=== PATIENT | female | born 2000 | race Caucasian/White ===

== ENCOUNTER 2024-09-11 16:45 | Emergency (ER) | payer OTHER ==
[~2024-09-11] VITALS: Ht 165.1 cm; Wt 59.0 kg
[2024-09-11 17:20] VITALS: BP 151/89; TEMP 98.6; O2SAT 98
[2024-09-11] MEDS: hydrOXYzine 10 MG TABLET PO ONE (18:08)
== END 2024-09-11 18:50 | disposition home or self-care (01) ==
LOC: ER 16:48
DX: F41.0 Panic disorder [episodic paroxysmal anxiety] (principal); R20.2 Paresthesia of skin; R42 Dizziness and giddiness; Z88.1 Allergy status to other antibiotic agents
CPT/HCPCS: 99283; Q0177